=== PATIENT | male | born 1945 | race Caucasian/White ===

== ENCOUNTER 2017-08-26 04:47 | Outpatient (CLI) | payer MEDICARE, BC | END 2017-08-26 23:59 | disposition home or self-care (01) | LOC: DIABETIC 04:47 | PROVIDERS: ATTEND Family Medicine | DX: E11.9 Type 2 diabetes mellitus without complications (principal) | CPT/HCPCS: G0108 ==

== ENCOUNTER 2017-11-26 04:57 | Outpatient (CLI) | payer MEDICARE, BC | END 2017-11-26 23:59 | disposition home or self-care (01) | LOC: DIABETIC 04:57 | PROVIDERS: ATTEND Family Medicine | DX: E11.9 Type 2 diabetes mellitus without complications (principal) | CPT/HCPCS: G0108 ==

== ENCOUNTER 2018-03-26 02:11 | Outpatient (CLI) | payer MEDICARE, BC | END 2018-03-26 23:59 | disposition home or self-care (01) | LOC: DIABETIC 02:11 | PROVIDERS: ATTEND Family Medicine | DX: E11.9 Type 2 diabetes mellitus without complications (principal); Z79.82 Long term (current) use of aspirin; Z79.84 Long term (current) use of oral hypoglycemic drugs | CPT/HCPCS: G0108 ==

== ENCOUNTER 2018-07-09 01:47 | Outpatient (CLI) | payer MEDICARE, BC | END 2018-07-09 23:59 | disposition home or self-care (01) | LOC: DIABETIC 01:47 | PROVIDERS: ATTEND Family Medicine | DX: E11.9 Type 2 diabetes mellitus without complications (principal); Z79.82 Long term (current) use of aspirin; Z79.84 Long term (current) use of oral hypoglycemic drugs | CPT/HCPCS: G0108 ==

== ENCOUNTER 2018-10-23 03:36 | Outpatient (CLI) | payer MEDICARE, BC | END 2018-10-23 23:59 | disposition home or self-care (01) | LOC: DIABETIC 03:36 | PROVIDERS: ATTEND Family Medicine | DX: E11.9 Type 2 diabetes mellitus without complications (principal); Z79.84 Long term (current) use of oral hypoglycemic drugs; Z79.899 Other long term (current) drug therapy | CPT/HCPCS: G0108 ==

== ENCOUNTER 2019-06-08 05:31 | Inpatient (IN) | payer MEDICARE, BC ==
[2019-06-03 12:37] LABS: BASOPHILS % (AUTO) 0.5 % (0-1); EOSINOPHILS # (AUTO) 0.1 X10'3 (0-0.9); EOSINOPHILS % (AUTO) 1.1 % (0-6); LYMPHOCYTES # (AUTO) 1.7 X10'3 (1.1-4.8); LYMPHOCYTES % (AUTO) 26.2 % (21-51); MEAN CORPUSCULAR HEMOGLOBIN 31.9 PG (27.0-31.0); MEAN CORPUSCULAR HGB CONC 34.9 g/dL (33.0-36.5); MEAN CORPUSCULAR VOLUME 91.2 FL (78-98); MEAN PLATELET VOLUME 7.4 FL (7.4-10.4); MONOCYTES # (AUTO) 0.5 X10'3 (0-0.9); MONOCYTES % (AUTO) 7.6 % (2-12); NEUTROPHILS # (AUTO) 4.2 X10'3 (1.8-7.7); NEUTROPHILS % (AUTO) 64.6 % (42-75); PRE OP HEMATOCRIT 44.3 % (42.0-52.0); PRE OP HEMOGLOBIN 15.5 g/dL (14.0-17.9); PRE OP PLATELET COUNT 164 X10'3 (140-440); RED BLOOD COUNT 4.86 X10'6 (4.70-6.10); RED CELL DISTRIBUTION WIDTH 13.4 % (11.5-14.5)
[2019-06-03 12:45] LABS: HEMOGLOBIN A1C 7.2 % (4.5-6.2)
[2019-06-03 12:50] LABS: PRE OP PROTIME 10.7 SECONDS (9.0-12.0)
[2019-06-03 12:52] LABS: ALBUMIN/GLOBULIN RATIO 1.3 (1.1-1.5); ALKALINE PHOSPHATASE 64 IU/L (46-116); BLOOD UREA NITROGEN 16 MG/DL (7-18); BUN/CREATININE RATIO 18.8 (5.4-32.0); CALCIUM 9.3 MG/DL (8.5-10.1); CHLORIDE 104 MMOL/L (99-107); CREATININE 0.85 MG/DL (0.60-1.10); PRE OP ALT 38 U/L (30-65); PRE OP ANION GAP 8 (8-16); PRE OP AST 18 U/L (10-37); PRE OP BILIRUB, TOTAL 0.8 MG/DL (0.0-1.0); PRE OP GLUCOSE 155 MG/DL (70-104); PRE OP POTASSIUM 4.1 MMOL/L (3.4-5.1); PRE OP SODIUM 140 MMOL/L (135-145); TOTAL CARBON DIOXIDE 27.7 MMOL/L (24-32); TOTAL PROTEIN 7.1 G/DL (6.4-8.2); eGFR 88 ML/MIN
[~2019-06-08] VITALS: Ht 198.1 cm; Wt 131.0 kg
[2019-06-08] VITALS (18 sets, daily range): BP systolic 125–169; BP diastolic 66–87
[~2019-06-08 05:31] MED LIST: ATEN50TA PO; ATOR40TA72 PO; BIOF1TAB7; DOCUMENT DATE & TIME OF BETA-BLOCKER PO ONE; METF-950 PO; MULTIVITAMIN; TRIA1CAP6 PO; ceFAZolin/D5W- 1GM premix 50 ML IV ONE; cefazolin/dext.iso 2gm/100ml 100 ML IV ONE; famotidine 10mg tablet PO ONE; ringers solution, lacted 1,000 ML IV SCH; tranexamic acid inj. 1,000 MG in normal saline 100 ML IV ONE; vancomycin inj 1,500 MG in normal saline 300ml IV soln IV ONE
[2019-06-08] MEDS ORDERED: LIDOcaine 1% (10mg/ml) 2ml vial ONE (06:06)
[2019-06-08] MEDS ORDERED: ceFAZolin 1000mg inj ONE (06:47)
[2019-06-08] MEDS ORDERED: tetracaine 1% (10mg/ml) pres. free inj. ONE (07:22)
[2019-06-08] MEDS ORDERED: MIDAZolam 1mg/ml 10ml vial ONE (07:24)
[2019-06-08] MEDS ORDERED: fentaNYL/PF 50MCG/1 ML 2ML syringe ONE (07:24)
[2019-06-08] MEDS ORDERED: ROPIVAcaine 0.2%/PF PUMP/bolus 550 ML ADDCANAL SCH (08:35)
[2019-06-08] MEDS ORDERED: ROPIVAcaine 0.2% (10 MG/5 ML) BOLUS INJECTION ADDCANAL PRN (08:35)
[2019-06-08] MEDS ORDERED: morphine 4 MG/ML inj SYRINge IV PRN ×2 (08:35)
[2019-06-08] MEDS ORDERED: meperidine/PF 25mg/ml syringe IV PRN ×2 (08:35)
[2019-06-08] MEDS ORDERED: ondansetron/PF 4mg/2ml inj IV PRN ×2 (08:35→10:25)
[2019-06-08] MEDS ORDERED: ringers solution, lacted 1,000 ML IV SCH (08:35)
[2019-06-08] MEDS ORDERED: ROPIVAcaine 0.5% (5mg/ml) 30ml vial ONE (10:02)
[2019-06-08] MEDS ORDERED: propofol inj 20 ML IV ONE (10:02)
[2019-06-08] MEDS ORDERED: acetaminophen 325mg tablet PO PRN (10:25)
[2019-06-08] MEDS ORDERED: magnesium hydroxide 30ml (MOM) UD suspension PO PRN (10:25)
[2019-06-08] MEDS ORDERED: diphenhydrAMINE 25mg capsule PO PRN ×2 (10:25)
[2019-06-08] MEDS ORDERED: bisacodyl 10mg suppository rectal RC PRN (10:25)
[2019-06-08] MEDS ORDERED: HYDROmorphone 1 mg/ml syringe IV PRN (10:25)
--- NOTE | 2019-06-08 10:40 | NUR ---
ADMITTED TO PACU FROM OR ACCOMPANIED BY ANESTHESIA. INTIAL PHYSICAL ASSESSMENT DONE AND RECORDED. REPORT RECEIVED FROM ANESTHESIA.
--- NOTE | 2019-06-08 11:40 | NUR ---
PACU DISCHARGE CRITERIA MET, REPORT GIVEN TO FLOOR. DENIES PAIN OR DISCOMFORT, TRANSFERRED TO ROOM IN STABLE GOOD CONDITION.
[2019-06-08] MEDS ORDERED: tranexamic acid inj. 1,000 MG in normal saline 100ml IV soln 100 ML IV ONE (13:25)
[2019-06-08] MEDS ORDERED: MESSAGE TO PHARMACY PO ONE (13:55)
[2019-06-08] MEDS ORDERED: dextrose 50%-water 50ml dispensing syringe IV PRN ×2 (13:55)
[2019-06-08] MEDS ORDERED: glucagon, human recombinant 1mg kit SUBCUT PRN (13:55)
[2019-06-08] MEDS ORDERED: dextrose ORAL solution 15 GM/59 ML bottle PO PRN ×2 (13:55)
[2019-06-08] MEDS: oxyCODONE IR 5mg (immed. release) tablet PO PRN ×3 (14:04→23:08)
[2019-06-08] MEDS ORDERED: oxyCODONE IR 5mg (immed. release) tablet PO PRN ×2 (14:40)
[2019-06-08] MEDS: ketorolac trometh. 30mg/ml inj. IV SCH ×2 (14:52→20:31)
[2019-06-08] MEDS: potassium Cl 20mEq in NS 1,000 ML IV SCH (14:54)
[2019-06-08] MEDS: ceFAZolin 1GM/D5W- ADD-VANTAGE 50 ML IV SCH ×2 (16:53→23:08)
--- NOTE | 2019-06-08 18:20 | NUR ---
Received report from TIMO Obrien. Assumed patient care.
[2019-06-08] MEDS ORDERED: VANCOMYCIN 1gm/H2O 200ml PB 200 ML IV SCH (20:00)
[2019-06-08] MEDS: sennosides 8.6mg tablet PO SCH (20:27)
[2019-06-08] MEDS: atenolol 50mg tablet PO SCH (20:29)
[2019-06-08] MEDS: insulin glargine (Lantus) pen - multi-dose SQ SCH (23:04)
[2019-06-08] MEDS: insulin Lispro (HumaLOG) vial - multi-dose SQ SCH (23:06)
[2019-06-09 02:00] VITALS: BP 136/63
[2019-06-09] MEDS: ketorolac trometh. 30mg/ml inj. IV SCH ×4 (02:17→20:00)
[2019-06-09] MEDS: oxyCODONE IR 5mg (immed. release) tablet PO PRN ×2 (05:17→17:29)
[2019-06-09] MEDS: potassium Cl 20mEq in NS 1,000 ML IV SCH ×2 (05:22→13:05)
[2019-06-09 06:13] LABS: BASOPHILS % (AUTO) 0.5 % (0-1); EOSINOPHILS # (AUTO) 0.1 X10'3 (0-0.9); HEMOGLOBIN 13.4 g/dl (14.0-17.9); LYMPHOCYTES # (AUTO) 1.3 X10'3 (1.1-4.8); LYMPHOCYTES % (AUTO) 16.8 % (21-51); MEAN CORPUSCULAR HEMOGLOBIN 31.8 PG (27.0-31.0); MEAN CORPUSCULAR HGB CONC 35.2 g/dL (33.0-36.5); MEAN CORPUSCULAR VOLUME 90.5 FL (78-98); MEAN PLATELET VOLUME 7.6 FL (7.4-10.4); MONOCYTES % (AUTO) 12.3 % (2-12); NEUTROPHILS # (AUTO) 5.4 X10'3 (1.8-7.7); NEUTROPHILS % (AUTO) 69.4 % (42-75); PLATELET COUNT 138 X10'3 (140-440); RED CELL DISTRIBUTION WIDTH 13.6 % (11.5-14.5); WHITE BLOOD COUNT 7.8 X10'3 (4.5-11.0)
--- NOTE | 2019-06-09 06:14 | NUR ---
Patient report given, questions answered and plan of care reviewed with TIMO Corral.
[2019-06-09 06:21] LABS: ALANINE AMINOTRANSFERASE 34 U/L (12-78); ALBUMIN/GLOBULIN RATIO 1.2 (1.1-1.5); ALKALINE PHOSPHATASE 43 IU/L (46-116); ANION GAP 6 (8-16); ASPARTATE AMINO TRANSFERASE 10 U/L (10-37); BILIRUBIN,TOTAL 0.8 MG/DL (0.1-1.0); BLOOD UREA NITROGEN 18 MG/DL (7-18); BUN/CREATININE RATIO 18.4 (5.4-32.0); CALCIUM 8.5 MG/DL (8.5-10.1); CHLORIDE 103 MMOL/L (99-107); CREATININE 0.98 MG/DL (0.60-1.10); GLUCOSE 126 MG/DL (70-104); SODIUM 136 MMOL/L (135-145); TOTAL CARBON DIOXIDE 27.3 MMOL/L (24-32); TOTAL PROTEIN 5.6 G/DL (6.4-8.2); eGFR 75 ML/MIN
[2019-06-09 06:31] VITALS: BP 150/81
[2019-06-09] MEDS: triamterene/HCTZ 37.5/25mg tablet PO SCH (09:07)
[2019-06-09] MEDS: enoxaparin 40mg/0.4ml syringe SQ SCH (09:08)
[2019-06-09] MEDS: insulin Lispro (HumaLOG) vial - multi-dose SQ SCH (09:29)
[2019-06-09 11:00] VITALS: BP 118/69
--- NOTE | 2019-06-09 11:17 | NUR ---
DM/Joint replacement consults: A1C 7.2. Pt/SO seen by RD for written/verbal DM/high protein eds w/ RD contact information provided. Pt reports A1C previously <7 but inactivity from knee has led to more flexible diet for comfort foods. Pt reports seeing CDE recently prior to OR. Declines additional proteins at this time and reports good appetite. Addendum: 06/09/19 at [address] Amended: Links added.
[2019-06-09 18:00] VITALS: BP 164/84
--- NOTE | 2019-06-09 18:10 | NUR ---
Received patient report from TIMO Corral. Assumed patient care.
--- NOTE | 2019-06-09 18:45 | NUR ---
Pt refused Humalog, his 1700 blood sugar was 150. Patient reports blood sugar is well controlled at home.
[2019-06-09] MEDS: sennosides 8.6mg tablet PO SCH (20:27)
[2019-06-09] MEDS: atenolol 50mg tablet PO SCH (20:29)
[2019-06-09] MEDS: insulin glargine (Lantus) pen - multi-dose SQ SCH (20:47)
[2019-06-09 22:00] VITALS: BP 199/98
[2019-06-10] MEDS: oxyCODONE IR 5mg (immed. release) tablet PO PRN ×3 (00:34→09:32)
--- NOTE | 2019-06-10 00:50 | NUR ---
Patient refused to use call light, got up to the bathroom independently. Assisted patient back to bed. Reminded him it is not safe to get up alone and he needs to use call light to get assistance.
[2019-06-10] MEDS: ketorolac trometh. 30mg/ml inj. IV SCH ×2 (02:00→07:31)
[2019-06-10 05:53] LABS: BASOPHILS % (AUTO) 0.3 % (0-1); EOSINOPHILS # (AUTO) 0.1 X10'3 (0-0.9); EOSINOPHILS % (AUTO) 0.7 % (0-6); HEMATOCRIT 36.3 % (42.0-52.0); HEMOGLOBIN 12.8 g/dl (14.0-17.9); LYMPHOCYTES # (AUTO) 1.1 X10'3 (1.1-4.8); LYMPHOCYTES % (AUTO) 12.4 % (21-51); MEAN CORPUSCULAR HEMOGLOBIN 32.4 PG (27.0-31.0); MEAN CORPUSCULAR HGB CONC 35.3 g/dL (33.0-36.5); MEAN CORPUSCULAR VOLUME 91.8 FL (78-98); MEAN PLATELET VOLUME 7.9 FL (7.4-10.4); MONOCYTES % (AUTO) 10.9 % (2-12); NEUTROPHILS # (AUTO) 6.9 X10'3 (1.8-7.7); NEUTROPHILS % (AUTO) 75.7 % (42-75); PLATELET COUNT 134 X10'3 (140-440); RED BLOOD COUNT 3.95 X10'6 (4.70-6.10); RED CELL DISTRIBUTION WIDTH 13.2 % (11.5-14.5); WHITE BLOOD COUNT 9.1 X10'3 (4.5-11.0)
[2019-06-10 06:10] VITALS: BP 165/86
[2019-06-10 06:16] LABS: ALANINE AMINOTRANSFERASE 28 U/L (12-78); ALBUMIN 3.1 G/DL (3.4-5.0); ALBUMIN/GLOBULIN RATIO 0.9 (1.1-1.5); ALKALINE PHOSPHATASE 46 IU/L (46-116); ANION GAP 8 (8-16); ASPARTATE AMINO TRANSFERASE 13 U/L (10-37); BILIRUBIN,TOTAL 1.1 MG/DL (0.1-1.0); BLOOD UREA NITROGEN 13 MG/DL (7-18); BUN/CREATININE RATIO 14.3 (5.4-32.0); CALCIUM 8.8 MG/DL (8.5-10.1); CHLORIDE 99 MMOL/L (99-107); CREATININE 0.91 MG/DL (0.60-1.10); GLUCOSE 180 MG/DL (70-104); POTASSIUM 4.1 MMOL/L (3.5-5.1); SODIUM 133 MMOL/L (135-145); TOTAL CARBON DIOXIDE 26.2 MMOL/L (24-32); TOTAL PROTEIN 6.4 G/DL (6.4-8.2); eGFR 82 ML/MIN
--- NOTE | 2019-06-10 06:18 | NUR ---
Patient report given, questions answered and plan of care reviewed with TIMO Greenberg.
--- NOTE | 2019-06-10 06:31 | NUR ---
Patient in room ORTHO 4007. I have received report from Melissa GREENWOOD and had the opportunity to ask questions and assume patient care.
[2019-06-10] MEDS: enoxaparin 40mg/0.4ml syringe SQ SCH (07:31)
[2019-06-10] MEDS: triamterene/HCTZ 37.5/25mg tablet PO SCH (07:39)
[2019-06-10 07:51] VITALS: BP 92/61
[2019-06-10] MEDS ORDERED: HYDR-4353 PO (08:52)
[2019-06-10 10:00] VITALS: BP 129/73
--- NOTE | 2019-06-10 10:00 | NUR ---
Patient had his on-q refilled, he and were taught all discharge instructions. Patient taken out to vehicle in wheelchair.
== END 2019-06-10 10:00 | disposition home or self-care (01) | DRG 470 ==
LOC: PAS IN 05:31 → EDSTATUS 07:30 → ORTHO 4S 11:30
PROVIDERS: ADMIT Orthopaedic Surgery; ATTEND Orthopaedic Surgery
PROC: 3E0T3BZ Introduction of Anesthetic Agent into Peripheral Nerves and Plexi, Percutaneous Approach (ICD-10-PCS; 2019-06-08)
PROC: 0SRC0J9 Replacement of Right Knee Joint with Synthetic Substitute, Cemented, Open Approach (ICD-10-PCS; principal; 2019-06-08 07:21)
DX: M17.11 Unilateral primary osteoarthritis, right knee (principal); D62 Acute posthemorrhagic anemia; I48.20 Chronic atrial fibrillation, unspecified; E11.9 Type 2 diabetes mellitus without complications; I10 Essential (primary) hypertension; Z79.899 Other long term (current) drug therapy
CPT/HCPCS: 36415; 80053; 82948; 83036; 85025; 85610; 85730; 86885; 86900; 86901; 86920; 87081; 97110; 97116; 97161; 97530; A4215; A6455; A7000; C1713; C1758; C1776; G0378; J0690; J1170; J1650; J1815; J1885; J2001; J2250; J2704; J2795; J3010; J3370; J3480; J7120

== ENCOUNTER 2020-09-23 05:59 | Day surgery (SDC) | payer MEDICARE, BC ==
[2020-09-14 17:05] LABS: BASOPHILS % (AUTO) 0.6 % (0-1); EOSINOPHILS # (AUTO) 0.1 X10'3 (0-0.9); EOSINOPHILS % (AUTO) 0.8 % (0-6); LYMPHOCYTES # (AUTO) 1.5 X10'3 (1.1-4.8); LYMPHOCYTES % (AUTO) 19.5 % (21-51); MEAN CORPUSCULAR HEMOGLOBIN 31.3 PG (27.0-31.0); MEAN CORPUSCULAR HGB CONC 34.2 g/dL (33.0-36.5); MEAN CORPUSCULAR VOLUME 91.5 FL (78-98); MEAN PLATELET VOLUME 7.9 FL (7.4-10.4); MONOCYTES # (AUTO) 0.7 X10'3 (0-0.9); MONOCYTES % (AUTO) 8.4 % (2-12); NEUTROPHILS # (AUTO) 5.6 X10'3 (1.8-7.7); NEUTROPHILS % (AUTO) 70.7 % (42-75); PRE OP HEMATOCRIT 47.3 % (42.0-52.0); PRE OP HEMOGLOBIN 16.2 g/dL (14.0-17.9); PRE OP PLATELET COUNT 194 X10'3 (140-440); RED BLOOD COUNT 5.17 X10'6 (4.70-6.10); RED CELL DISTRIBUTION WIDTH 12.9 % (11.5-14.5)
[2020-09-14 17:20] LABS: ALBUMIN 3.8 G/DL (3.4-5.0); ALKALINE PHOSPHATASE 89 IU/L (46-116); BLOOD UREA NITROGEN 21 MG/DL (7-18); BUN/CREATININE RATIO 22.8 (5.4-32.0); CALCIUM 10.1 MG/DL (8.5-10.1); CHLORIDE 100 MMOL/L (99-107); CREATININE 0.92 MG/DL (0.60-1.10); PRE OP ALT 34 U/L (30-65); PRE OP ANION GAP 12 (8-16); PRE OP AST 16 U/L (10-37); PRE OP BILIRUB, TOTAL 0.7 MG/DL (0.0-1.0); PRE OP POTASSIUM 3.9 MMOL/L (3.4-5.1); PRE OP SODIUM 137 MMOL/L (135-145); TOTAL CARBON DIOXIDE 24.7 MMOL/L (24-32); TOTAL PROTEIN 7.7 G/DL (6.4-8.2); eGFR 80 ML/MIN
[2020-09-14 17:24] LABS: PRE OP GLUCOSE 209 MG/DL (70-104)
[~2020-09-23] VITALS: Ht 198.1 cm; Wt 126.8 kg
[~2020-09-23 05:59] MED LIST changes: +APIX5TAB3 PO; +ASPI-1264 PO; +ATOR40TA PO; -ATOR40TA72 PO; -BIOF1TAB7; +CHOL10006 PO; +LIPOFLAVONOID PO; +METF-900 PO; -METF-950 PO; +MULT-1074 PO; -MULTIVITAMIN; +ceFAZolin inj. 3,000 MG in normal saline 100ml IV soln 100 ML IV ONE; -famotidine 10mg tablet PO ONE; +famotidine 20mg tablet PO ONE; -tranexamic acid inj. 1,000 MG in normal saline 100 ML IV ONE; -vancomycin inj 1,500 MG in normal saline 300ml IV soln IV ONE
[2020-09-23 06:15] VITALS: BP 138/93
[2020-09-23] MEDS ORDERED: BUPIVAcaine/PF 2.5 mg/ml (0.25%) 30ml vial ONE (06:43)
[2020-09-23] MEDS ORDERED: LIDOcaine 0.5% (5mg/ml) 50ml vial ONE (07:31)
[2020-09-23] MEDS ORDERED: MIDAZolam 1 MG/ML 5ML VIAL ONE (08:10)
[2020-09-23] MEDS ORDERED: fentaNYL/PF 50MCG/1 ML 2ML syringe ONE ×2 (08:10→10:31)
[2020-09-23] MEDS ORDERED: HYDROmorphone/PF 0.2 MG/ML SYRINGE IV PRN ×2 (08:35)
[2020-09-23] MEDS ORDERED: ondansetron/PF 4mg/2ml inj IV PRN (08:35)
[2020-09-23] MEDS ORDERED: ringers solution, lacted 1,000 ML IV SCH (08:35)
[2020-09-23] MEDS ORDERED: morphine 2 MG/ML inj. syringe IV PRN (08:35)
[2020-09-23] MEDS ORDERED: propofol inj 20 ML IV ONE (10:55)
[2020-09-23] MEDS ORDERED: LIDOcaine 1%/PF 5ML 10 MG/ML VIAL ONE (10:55)
[2020-09-23] MEDS ORDERED: hydrALAZINE 20mg/ml inj. IV ONE (10:55)
[2020-09-23 10:58] VITALS: BP 125/89
--- NOTE | 2020-09-23 10:58 | NUR ---
Received from OR via JON , accompanied by Anesthesiologist MK and report given by Anesthesiolgist. PATIENT WITH 20G PIV IN RIGHT UE RUNNING LR AT 100. DENIES PAIN AT THIS TIME. VSS. LEFT WRIST DRESSING IS CDI. Addendum: 09/23/20 at 1112 by Harry Reyes RN, RN Amended: Links added.
[2020-09-23 11:10] VITALS: BP 131/84
[2020-09-23 11:20] VITALS: BP 136/83
[2020-09-23 11:30] VITALS: BP 147/93
--- NOTE | 2020-09-23 11:38 | NUR ---
PATIENT VERBALIZED UNDERSTANDING, OPPORTUNITY TO ASK QUESTIONS GIVEN AND PATIENT COMFORTABLE WITH DC. IV TAKEN OUT WITHOUT COMPLICATION. PATIENT HAS MET ALL DC CRITERIA FOR DC HOME. I HAVE REVIEWED D/C INSTRUCTIONS WITH PATIENT. TAKEN OUT VIA WHEELCHAIR WHERE PATIENT WAS TAKEN HOME WITH ALL BELONGINGS. FAMILY GAVE PATIENT TRANSPORT HOME. SPOUSE EDUCATED ON ELEVATING LEFT UE ABOVE HEART FOR SWELLING CONTROL AND ICE TO DORSUM OF HAND. Addendum: 09/23/20 at 1147 by Harry Reyes RN, RN Amended: Links added.
== END 2020-09-23 11:38 | disposition home or self-care (01) ==
LOC: PAS 05:59
PROVIDERS: ATTEND Orthopaedic Surgery Hand Surgery
DX: S63.592A Other specified sprain of left wrist, initial encounter (principal); M65.842 Other synovitis and tenosynovitis, left hand; F32.9 Major depressive disorder, single episode, unspecified; E11.9 Type 2 diabetes mellitus without complications; I10 Essential (primary) hypertension; I48.91 Unspecified atrial fibrillation; Z72.89 Other problems related to lifestyle; Z79.01 Long term (current) use of anticoagulants; Z79.84 Long term (current) use of oral hypoglycemic drugs; Z79.82 Long term (current) use of aspirin; Z79.899 Other long term (current) drug therapy; X58.XXXA Exposure to other specified factors, initial encounter; Y93.89 Activity, other specified; Y92.89 Other specified places as the place of occurrence of the external cause; Y99.8 Other external cause status; Z98.890 Other specified postprocedural states
CPT/HCPCS: 29846; 36415; 80053; 82948; 85025; 93005; J0360; J0690; J2001; J2250; J2704; J3010; J3490; J7120; A4215; A4618; A6449; A7000